=== PATIENT | female | born 1985 | race Caucasian/White ===

== ENCOUNTER 2017-01-16 15:19 | Emergency (ER) | payer OTHER ==
[~2017-01-16] VITALS: Ht 162.6 cm; Wt 109.8 kg
[~2017-01-16 15:19] MED LIST: ALDACTONE25 MG PO; AMBIEN10 MG PO; APAP/HYDROCODON1 T13 PO; CARVEDILOL3.125 M1 PO; CIPRO500 MG PO; FERROUS SULFAT325 M2 PO; FLO4 PO; GABAPENTIN300 M2 PO; KEFLEX500 MG PO; LAC PO; LASIX20 MG PO; LISINOPRIL5 MG PO; NOR10T PO; OMEPRAZOLE20 M2 PO; PRO10 PO; STELARA; SYN75 PO; TRAMADOL HCL50 MG PO; TYLENOL EXTRA500 M2 PO; VITC PO; ZOCOR40 MG PO
[2017-01-16 16:15] LABS: BASOPHIL % 0.4 % (0-2); PLATELET COUNT 226 x10^3mcL (130-400)
[2017-01-16 16:16] LABS: RED CELL DISTRIBUTION WIDTH 18.9 % (11.5-14.5)
[2017-01-16 16:22] LABS: UA SPECIFIC GRAVITY 1.025 (1.005-1.035); microscopic required? YES; urine erythrocyte 1+ (NEGATIVE)
[2017-01-16 18:06] VITALS: BP 169/99
== END 2017-01-16 18:06 | disposition home or self-care (01) ==
LOC: ED 15:19
PROVIDERS: Emergency Medicine
DX: O26.892 Other specified pregnancy related conditions, second trimester (principal); I10 Essential (primary) hypertension; E78.00 Pure hypercholesterolemia, unspecified; E03.9 Hypothyroidism, unspecified; L40.50 Arthropathic psoriasis, unspecified; M79.7 Fibromyalgia; E66.01 Morbid (severe) obesity due to excess calories; Z85.71 Personal history of Hodgkin lymphoma; Z3A.16 16 weeks gestation of pregnancy

== ENCOUNTER 2019-03-08 14:18 | Emergency (ER) | payer OTHER ==
[~2019-03-08] VITALS: Ht 162.6 cm; Wt 112.0 kg
[2019-03-08 14:27] VITALS: Ht 162.6 cm; Wt 112.0 kg
[2019-03-08 15:02] VITALS: BP 177/77
== END 2019-03-08 15:02 | disposition home or self-care (01) ==
LOC: ED 14:18
DX: K04.7 Periapical abscess without sinus (principal); L40.50 Arthropathic psoriasis, unspecified; G62.9 Polyneuropathy, unspecified; F17.210 Nicotine dependence, cigarettes, uncomplicated; I10 Essential (primary) hypertension; Z71.6 Tobacco abuse counseling; Z85.72 Personal history of non-Hodgkin lymphomas
CPT/HCPCS: 99406

== ENCOUNTER 2019-10-01 13:03 | Inpatient (IN) | payer OTHER ==
[~2019-10-01] VITALS: Ht 162.6 cm; Wt 118.8 kg
[2019-10-01 13:27] VITALS: Ht 162.6 cm; Wt 118.8 kg
--- NOTE | 2019-10-01 13:50 | NUR ---
PT C/O SOB SINCE JULY, PT REPORTS EMOTIONALLY UPSET "AFTER MY MOM AND I AM FEELING EXTRA ANXIOUS AND MY BLOOD PRESSURE HAS BEEN WAY MORE HIGH THAN NORMAL PT DENIES ANY HX ASTHMA, PT DENIES ANY CHEST PAIN, PT AAOX4, RESPIRATIONS EVEN AND UNLAORED, LUNGS CTA, PT NOTED TO BE CRYING, SKIN PINK DRY WARM, SPO2 97% VIA RM, NO S/S RESPIRATORY DISTRESS NOTED AT THIS TIME, PT IN NAD ON FULL CM, NSR, SPOUSE AT BEDSIDE, WILL CONTINUE TO MONITOR
--- NOTE | 2019-10-01 13:52 | NUR ---
PORTABLE CXR AT BEDSIDE
--- NOTE | 2019-10-01 14:01 | NUR ---
EKG IN PROGRESS
[2019-10-01 14:21] LABS: BASOPHIL % 0.3 % (0-2); PLATELET COUNT 310 x10^3mcL (130-400)
[2019-10-01 14:23] LABS: RED CELL DISTRIBUTION WIDTH 19.4 % (11.5-14.5)
[2019-10-01 14:37] LABS: CALCIUM 8.7 mg/dL (8.5-10.1); CARBON DIOXIDE 28.4 mmol/L (21-32); CHLORIDE SERUM 105 mmol/L (98-107); CREATININE SERUM 1.1 mg/dL (0.6-1.0); GFR1 > 60 mL/min; GLUCOSE SERUM 102 mg/dL (74-106); POTASSIUM SERUM 5.2 mmol/L (3.5-5.1); SODIUM SERUM 138 mmol/L (136-145)
[2019-10-01 14:42] LABS: ALKALINE PHOSPHATASE 103 U/L (46-116); ALT/SGPT 43 U/L (14-59); AST/SGOT 54 U/L (15-37); BILIRUBIN TOTAL 0.31 mg/dL (0.20-1.00); TOTAL PROTEIN, SERUM 7.4 g/dL (6.4-8.2)
--- NOTE | 2019-10-01 15:39 | NUR ---
MD TORRES MADE AWARE OF PT BP CATAPRES HELD, PER MD TORRES HOLD MED D/T PT BP 153/92 (111)
--- NOTE | 2019-10-01 16:08 | NUR ---
PT CURRENTLY IN CT
--- NOTE | 2019-10-01 17:19 | NUR ---
PT MEDICATED PER MD ORDER, SEE EMAR, NSR ON CM, VSS, CALL LIGHT WITHIN REACH
--- NOTE | 2019-10-01 17:20 | NUR ---
NITRO PATCH REMOVED D/T PT C/O HEADACHE, MADE AWARE
[2019-10-01] MEDS ORDERED: PRO30 PO (17:21)
--- NOTE | 2019-10-01 17:31 | NUR ---
MD TOURE AT BEDSIDE DISCUSSING PLAN OF CARE
--- NOTE | 2019-10-01 18:38 | NUR ---
PT SPEAKING WITH ADMITTING RESIDENTS, IN NAD, SPEAKING FULL CLEAR SENTENCES, NSR ON CM, SKIN PINK DRY WARM
--- NOTE | 2019-10-01 19:15 | NUR ---
REPORT GIVEN TO SONIA MOREIRA, TELE TO RESUME CARE OF PT UPON ADMISSION
--- NOTE | 2019-10-01 19:23 | NUR ---
RECEIVED PT VIA [employer] FROM E/D, ACCOMPANIED BY RN AND TRANSPORTER. PT A/A/O X 4, ANXIOUS (VERBALIZES ANXIOUSNESS, INEFFECTIVE COPING, AND FEARS R/T HOSPITAL STAY (MOTHER 07/2019)) BUT COOPERATIVE TO CARE; C/O CONSTANT THROBBING MIGRAINE H/A "08/16", NOT EXACERBATED BY ANYTHING BUT MILDLY RELIEVED BY PAIN MEDICATIONS; NOTED THAT PT JUST HAD NITROPASTE PATCH REMOVED CLEANING SUPERVISOR TO MST; ALSO, PT'S BP 184/115 (130); STATED THAT SHE BARELY GOT HER INSURANCE BACK. AMBULATORY, NO GAIT OR BALANCE IMPAIRMENT NOTED WHEN WALKING FROM GURNEY TO BED. ON TELE # 21, NSR, HR 96.7, +DIZZINESS ON AMBULATION, DENIES CHEST PAIN OR DISCOMFORT AT THIS TIME. VIKASH RADIAL AND PEDAL PULSES PRESENT, BLE +2 PITTING EDEMA, CAP REFILL < 3 SECS, SCD BY BEDSIDE. LUNGS CTAB, CHEST RISING EVENLY, 2LNC, 100%, C/O PRODUCTIVE COUGH W/ MODERATE AMOUNT OF YELLOW/GREEN SPUTUM. NOTED GENERALIZED BODY PSORIATIC LESIONS. IV SITE LAC 20G, CDI. ORIENTED PT TO ROOM, BED CONTROLS, CALL LIGHT SYSTEM. SIDE RAILS UP X 2, BED IN LOW POSITION. WILL ENDORSE TO SONIA MOREIRA.
[2019-10-01 19:32] LABS: CHOLESTEROL/HDL RATIO 3.1
[2019-10-01 20:13] VITALS: BP 184/115
[2019-10-01 21:00] VITALS: BP 184/115
[2019-10-01 21:39] LABS: TOTAL IRON BINDING CAPACITY 406 ug/dL (250-450)
[2019-10-01 21:42] LABS: IRON 21 ug/dL (50-170)
--- NOTE | 2019-10-01 21:42 | NUR ---
ATIVAN GIVEN FOR ANXIETY.
[2019-10-01 22:29] LABS: RED BLOOD CELLS 4.48 M/mm3 (4.10-5.10)
[2019-10-02 05:06] VITALS: BP 151/90
--- NOTE | 2019-10-02 05:10 | NUR ---
REPORT RECEIVED FROM SONIA MOREIRA. PATIENT WAS SEEN RESTING IN BED. AT BEDSIDE. BREATHING EVEN AND UNLABORED ON ROOM AIR. NO SOB OR RESP DISTRESS NOTED. DENIES CHEST PAIN. C/O 9/10 BACK PAIN WHEN INHALATION OCCURS. WILL ADMINSITER PRN PAIN MEDS. IV TO THE LAC, SALINE LOCK. PATENT AND INTACT. NO REDNESS OR SWELLING NOTED. COMFORT AND SAFETY MEASURES IN PLACE. CALL LIGHT IS WITHIN REACH. WILL CONTINUE TO MONITOR
--- NOTE | 2019-10-02 05:25 | NUR ---
PRN NORCO WAS ADMINISTERED PER ORDER FOR 910 BACK PAIN. MED EDUCATION GIVEN. 2L NC ON. NO DISTRESS NOTED. WILL CONTINUE TO MONITOR
[2019-10-02 06:22] LABS: BASOPHIL % 0.8 % (0-2); PLATELET COUNT 285 x10^3mcL (130-400)
[2019-10-02 06:42] LABS: CALCIUM 8.6 mg/dL (8.5-10.1); CARBON DIOXIDE 26.4 mmol/L (21-32); CHLORIDE SERUM 103 mmol/L (98-107); CREATININE SERUM 1.1 mg/dL (0.6-1.0); GFR1 > 60 mL/min; GLUCOSE SERUM 113 mg/dL (74-106); POTASSIUM SERUM 3.6 mmol/L (3.5-5.1); SODIUM SERUM 138 mmol/L (136-145)
--- NOTE | 2019-10-02 07:25 | NUR ---
RECEIVED PATIENT AOX4, NOT IN DISTRESS, CALM , TELE 21, NSR, REGULAR RATE AND RHYTHM, S1 AND S2 HEARD, PALPABLE PULSES, NO EDEMA, RHONCHI AND CRACKLES ON BLF, PRODUCTIVE COUGH WITH YELLOWISH SPUTUM , O2 AT 2LPM VIA NC, 100% O2 SAT, + BS, 10/01/19, VOID WITH NO DYSURIA, GENERALIZED WEAKNESS, FULL ROM, SILVERY PLAQUE THICKENING GENERALIZED, NO PAIN AT THIS TIME, IV INTACT AND PATENT, SL, NO REDNESS OR INFILTRATION AT LAC. CALL LIGHT WITHIN REACH.B ED AT LOWEST POSITION.
[2019-10-02 08:24] VITALS: BP 174/87
--- NOTE | 2019-10-02 09:00 | NUR ---
SEEN AOX4, NOT IN DISTRESS, COMPLAINTS OF MIGRAINE HEADACHE PS OF 8/10, IV INTACT AND PATENT, NO REDNESS OR INFILTRATION, SL. PO MEDICATIONS GIVEN. SPECIMEN FOR INFLUENZA COLLECTED. CALL LIGHT WITHIN REACH. BED AT LOWEST POSITION.
[2019-10-02 10:44] LABS: microscopic required? YES; urine erythrocyte NEGATIVE (NEGATIVE)
[2019-10-02 11:03] LABS: AMPHETAMINE QUAL UR POSITIVE (See below)
[2019-10-02 12:11] VITALS: BP 107/59
--- NOTE | 2019-10-02 12:38 | NUR ---
PAGED DR MERRILL FOR UA YEAST RESULT. WILL WAIT FOR CALL BACK.
--- NOTE | 2019-10-02 12:43 | NUR ---
DR MERRILL MADE AWARE OF YEAST RESULT
--- NOTE | 2019-10-02 15:10 | NUR ---
DR MERRILL MADE AWARE OF + AMPHETAMINE , + CANNABINOID RESULTS. FOLLOWED UP WITH [facility] FEW YEAST. PER DR MERRILL, SHE WILL ORDER DIFLUCAN .
--- NOTE | 2019-10-02 15:32 | NUR ---
PATIENT UA YEAST RESULT. DIFLUCAN PO GIVEN .
--- NOTE | 2019-10-02 16:49 | NUR ---
PATIENT COMPLAINT OF L LATERAL ARM PAIN FROM FLU VACCINE. PO MEDICATION FOR PAIN GIVEN. LASIX GIVEN PRESCRIBED.
[2019-10-02 16:50] VITALS: BP 131/68
--- NOTE | 2019-10-02 18:31 | NUR ---
SEEN PATIENT ASLEEP AND COMFORTABLE.
--- NOTE | 2019-10-02 19:15 | NUR ---
PAGED DR MERRILL FOR PATIENT'S HYPERSENSITIVITY REACTION AT [facility]. SWELLING AND REDNESS NOTED. ENDORSED TO CHILD LIFE SPECIALIST NURSE JHON.
--- NOTE | 2019-10-02 19:30 | NUR ---
PT RECIEVED FROM DAY NURSE. PT RESTING AT SIDE OF BED AT THIS TIME. PT STATING PAIN TO LUE. EDEMA AND ERYTHEMA NOTED. MD ALMEIDA MADE AWARE. PT A/O X4, CALM AND COOPERATIVE AT THIS TIME. TELE 21, NSR. DENIES CP, NV, DIZZINESS OR PALPATATIONS AT THIS TIME. PALPABLE PULSES, EDEMA NOTED TO LUE AND BLE. ELEVATED WITH PILLOWS. BREATHING E/U ON RA. PT DENIES SOB AT THIS TIME. DRY COUGH NOTED. ABD SOFT AND ROUND, DENIES PAIN TO PALPATION. GENERALZIED WEAKENSS, AMBULATORY AT BASELINE. PSORIATIC LESIONS NOTED ALL OVER BODY. IV TO LAC, CDI. BED AT LOWEST POSITION. CALL LIGHT WITHIN REACH. WILL CONTINUE TO MONITOR.
[2019-10-02 20:27] VITALS: BP 159/74
--- NOTE | 2019-10-02 22:45 | NUR ---
PT COMPLAINING OF ANXIETY, MEDICATED WTIH PRN ATIVAN. WILL CONTINUE TO MONITOR.
--- NOTE | 2019-10-03 | NUR ---
PT RESTING IN BED AT THIS TIME. NO SIGNS OF ACUTE DISTRESS NOTED. BREATHING E/U. WILL CONTINUE TO MONITOR.
[2019-10-03 06:19] VITALS: BP 134/67
[2019-10-03 06:29] LABS: BASOPHIL % 0.3 % (0-2)
[2019-10-03 06:42] LABS: CALCIUM 8.9 mg/dL (8.5-10.1); CARBON DIOXIDE 32.1 mmol/L (21-32); CHLORIDE SERUM 102 mmol/L (98-107); GFR1 > 60 mL/min; GLUCOSE SERUM 101 mg/dL (74-106); POTASSIUM SERUM 3.5 mmol/L (3.5-5.1); SODIUM SERUM 141 mmol/L (136-145)
--- NOTE | 2019-10-03 06:43 | NUR ---
PT COMPLAINING OF ANXIETY. MEDICATED WITH PRN ATIVAN. PT RESTING IN BED. DENIES PAIN OR DISCOMFORT. BREATHING E/U. NO SIGNS OF ACUTE DISTRESS AT THIS TIME. ALL NEEDS AND CONCERNS ADDRESSED. WILL ENDORSE TO DAY NURSE.
[2019-10-03 06:44] LABS: PLATELET COUNT 314 x10^3mcL (130-400)
[2019-10-03 07:06] LABS: RED CELL DISTRIBUTION WIDTH 19.2 % (11.5-14.5)
[2019-10-03 08:18] VITALS: BP 150/90
--- NOTE | 2019-10-03 09:20 | NUR ---
SEEN AOX4, NOT IN DISTRESS, COHERENT , RESPONSIVE, TELE 21 NSR WITH DEPRESSED T WAVE, REGULAR RATE AND RHYTHM, S1 AND S2 HEARD, + MURMUR AT 5TH RICS, MCL, CTA ON BLF, +BS, VOID WITH NO DYSURIA, GENERALIZED WEAKNESS, PAIN AT ROMERO PS 4/10, IV INTACT AND PATENT, NO REDNESS OR INFILTRATION. PHILIP REDNESS, ROMERO REDNESS AND SWELLING. PSORIATIC LESIONS ALL OVER BODY. CALL LIGHT WITHIN REACH. BED AT LOWEST POSITION.
--- NOTE | 2019-10-03 09:31 | NUR ---
SEEN AOX4, NOT IN DISTRESS, PO MEDICATIONS TAKEN, LASIX IVP GIVEN, IV INTACT WITH NO REDNESS OR INFILTRATION. IV FLUSHED.
--- NOTE | 2019-10-03 09:34 | NUR ---
SEEN AOX4, NOT IN DISTRESS, FLONASE SPRAYED TO EACH NOSTRIL.
--- NOTE | 2019-10-03 11:24 | NUR ---
SEEN AOX4, RESPONSIVE, VENLAFAXINE PO GIVEN.
[2019-10-03 11:35] VITALS: BP 157/73
[2019-10-03 17:00] VITALS: BP 125/63
--- NOTE | 2019-10-03 18:01 | NUR ---
PATIENT WAS LYING ON LEFT ARM, IV SITE LEAKING, ASSESSED IV . IV REINFORCED WITH DRESSING, FLUSHED TO ENSURE PATENCY. PATIENT ANXIOUS. GIVEN XANAX PO. CALL LIGHT WITHIN REACH. BED AT LOWEST POSITION.
--- NOTE | 2019-10-03 18:17 | NUR ---
LASIX IVP GIVEN
[2019-10-03 19:15] VITALS: BP 131/66
--- NOTE | 2019-10-03 19:15 | NUR ---
RECEIVED PT AWAKE ALERT AND VERBALLY RESPONSIVE.BREATHING EASY AND NON-LABORED.O2 SAT @ 97% RA.OCCASSIONAL COUGHING REPORTED BY PT TO WHITISH COLORED PHLEGM,SUCTIONED AT BEDSIDE PREFFERED BY PT.DIMINISHED BREATHSOUNDS.DENIES CHESTPAIN.BP 131/66 MMHG,HR 100.WILL CONTINUE TO MONITOR.
--- NOTE | 2019-10-04 04:48 | NUR ---
PT SLEPT WELL ALL NIGHT.BREATHING EASY AND NON-LABORED.ON RT PROTOCOL.BREATHING TX GIVEN ORDERED.DENIES ANY PAIN AT THIS TIME.ALL NEEDS MET.WILL CONTINUE TO MONITOR.
[2019-10-04 05:44] VITALS: BP 148/79
[2019-10-04 06:36] LABS: CALCIUM 8.6 mg/dL (8.5-10.1); CARBON DIOXIDE 29.8 mmol/L (21-32); CHLORIDE SERUM 103 mmol/L (98-107); CREATININE SERUM 0.9 mg/dL (0.6-1.0); GFR1 > 60 mL/min; GLUCOSE SERUM 106 mg/dL (74-106); POTASSIUM SERUM 3.6 mmol/L (3.5-5.1); SODIUM SERUM 140 mmol/L (136-145)
[2019-10-04 06:44] LABS: BASOPHIL % 0.3 % (0-2); PLATELET COUNT 336 x10^3mcL (130-400)
[2019-10-04 07:21] LABS: RED CELL DISTRIBUTION WIDTH 19.3 % (11.5-14.5)
--- NOTE | 2019-10-04 07:30 | NUR ---
PT SLEEPING. NO RESP DISTRESS NOTED. CALL LIGHT WITHIN REACH. FAMILY MEMBER IN ROOM ALSEEP IN CHAIR.
[2019-10-04 07:50] VITALS: BP 144/73
--- NOTE | 2019-10-04 09:30 | NUR ---
SLEEPING AWAKENS TO VERBAL. STARTED NEW IV TO RT FA. NO C/O PAIN . LUNG SOUNDS CLEAR ON RA. GOOD APPETITE WITH BREAKFAST. VSS. BRP. CALL LIGHT WITHIN REACH. FAMILY MEMBER ASLEEP IN CHAIR.
--- NOTE | 2019-10-04 10:14 | NUR ---
PRECIOUS COMMUNITY PHARMACIST IN TO SEE PT. IV WAS FOUND TO BE NONPATENT AND DC'D FROM LEFT FA. PT CONTINUES TO SLEEP.
[2019-10-04 12:23] VITALS: BP 111/57
[2019-10-04 16:12] VITALS: BP 96/52
[2019-10-04 16:14] VITALS: BP 119/46
[2019-10-04 19:10] VITALS: BP 131/62
--- NOTE | 2019-10-04 19:10 | NUR ---
RECEIVED PT ASLEEP BUT EASILY AROUSABLE.BREATHING EASY AND NON-LABORED.DIMINISHED BREATHSOUNDS,SUCTION ON STANDBY TO SUCTION SECRETIONS.SECRETIONS TO THICK WHITISH PHLEGM.DENIES CHESTPAIN.BP 131/62 MMHG,HR 106.DINNER TRAY SET-UP AND EATING AT THIS TIME.WILL CONTINUE TO MONITOR.
--- NOTE | 2019-10-04 19:43 | NUR ---
PT HAS BEEN QUIET ENTIRE SHIFT. SLEPT MOST OF THE DAY. INDEPENDENT W ADLS'.XANAX ADMIN X 1. VSS. NO C/O PAIN. SL TO RT FA. BREATHING FREELY ON RA.
--- NOTE | 2019-10-05 04:49 | NUR ---
PT SLEPT WELL ALL NIGHT.BREATHING EASY AND NON-LABORED.ON RT PROTOCOL.ENCOURAGED USE OF INCENTIVE SPIROMETER.ALL NEEDS MET.WILL CONTINUE TO MONITOR.
[2019-10-05 05:16] VITALS: BP 109/57
[2019-10-05 07:09] LABS: BASOPHIL % 0.4 % (0-2); PLATELET COUNT 366 x10^3mcL (130-400)
[2019-10-05 07:22] LABS: RED CELL DISTRIBUTION WIDTH 19.7 % (11.5-14.5)
[2019-10-05 07:36] LABS: CALCIUM 9.1 mg/dL (8.5-10.1); CARBON DIOXIDE 29.4 mmol/L (21-32); CHLORIDE SERUM 101 mmol/L (98-107); GFR1 > 60 mL/min; GLUCOSE SERUM 89 mg/dL (74-106); POTASSIUM SERUM 4.3 mmol/L (3.5-5.1); SODIUM SERUM 138 mmol/L (136-145)
--- NOTE | 2019-10-05 08:00 | NUR ---
RECIEVED PATIENT ASLEEP BUT ARROUSABLE. IV INTACT AND PATIENT HAS NOTED AN ODOR TO HERSELF AND WAS OFFERED SEVERAL TIMES FOR A SHOWER BUT HAS YET TAKEN. SHE HERNANDEZ SOME CONGESTION TO THE LUNGS AND A MINIMAL PRODUCTION OF SPUTUM NOTED. PATIENT HAS SOME EDMEA TO THE LOWER EXTREMITIES BUT TRACE AT THIS TIME. SHE IS GROSSLY OBESE AND HAS NOT COMPLIED WITH HOSPITAL GOWN AND NOTED PSORIASIS PATCHY LESIONS ON WHAT STAFF CAN SEE ON HER ARMS AND TO HER ABDOMEN. SHE HAS TAKEN HER MEDICATIONS ORDERED AND IS NOW REQUESTING ANXIETY MEDICATION AND GAVE XANAX ORDERED. SHE HAS BEEN AMBULATORY AND WITH HX OF FIBROMAYLAGIA AND [id number]. SHE HAS NOTED LASB OF WBC AT 11.9, AND THE H AND H OF 10.3/33, AND THE BUN AT 21.0. PATIENT AHS VITALS AT THIS TIME AT 98.1, 91, 18, 109/57, 97%. PATIENT WAS POSTIVE FOR THC AND AMPHETAMINE IN HER URINE ON ARRIAVL SHE HAS BEEN SEEN BY DR CHURCH, LUIS E AND DR SEAMAN. PATIENT SEEN BY THE TRANSIT VEHICLE INSPECTOR AND PLAN IS FOR DISCHARGE HOME TODAY PER REPORT FROM TRUMPET TEACHER.
[2019-10-05 08:45] VITALS: BP 116/63
--- NOTE | 2019-10-05 09:23 | NUR ---
SEEN TODAY BY MORTGAGE FUNDER AND PLAN IS FOR DISCHARGE HOME TODAY. AWAITING ORDERS AT THIS TIME.
[2019-10-05] MEDS ORDERED: ZESTRIL5 MG PO (11:10)
[2019-10-05] MEDS ORDERED: PROCARDIA XL90 MG PO (11:10)
[2019-10-05] MEDS ORDERED: LASIX40 MG PO (11:10)
--- NOTE | 2019-10-05 11:31 | NUR ---
ORDER FOR DISCHARGE RECIEVED. WILL ADVISE THE PATIENT INDICATED.
[2019-10-05 11:36] VITALS: BP 116/63
[2019-10-05 12:11] VITALS: BP 130/70
--- NOTE | 2019-10-05 12:46 | NUR ---
REMOVED THE IV AND AND PATIEN TFOR DISCHARGE HOME TODAY. PATIENT IS ANXIOUS TO GO HOME. AWAITING HER FAMILY TO DIRECT SERVICE PROFESSIONAL.
== END 2019-10-05 13:50 | disposition home or self-care (01) | DRG 199 ==
LOC: ED 13:03 → DU 18:21 → MU 10-05 04:28
PROVIDERS: Emergency Medicine; ADMIT General Practice
DX: I16.0 Hypertensive urgency (principal); N17.0 Acute kidney failure with tubular necrosis; I11.0 Hypertensive heart disease with heart failure; I50.33 Acute on chronic diastolic (congestive) heart failure; E44.0 Moderate protein-calorie malnutrition; E87.5 Hyperkalemia; L40.50 Arthropathic psoriasis, unspecified; Z68.41 Body mass index [BMI] 40.0-44.9, adult; M94.0 Chondrocostal junction syndrome [Tietze]; J20.8 Acute bronchitis due to other specified organisms; M79.7 Fibromyalgia; F15.10 Other stimulant abuse, uncomplicated; F12.10 Cannabis abuse, uncomplicated; F17.210 Nicotine dependence, cigarettes, uncomplicated; F32.9 Major depressive disorder, single episode, unspecified; F41.9 Anxiety disorder, unspecified; Z85.71 Personal history of Hodgkin lymphoma; Z92.21 Personal history of antineoplastic chemotherapy; Z92.3 Personal history of irradiation
CPT/HCPCS: 83880; 87804; 90658; 90732; 97116-GP; G0378; J1885; J1940; J2060; J7512; Q0092; Q9967

== ENCOUNTER 2019-11-29 17:47 | Emergency (ER) | payer OTHER ==
[~2019-11-29] VITALS: Ht 162.6 cm; Wt 112.5 kg
[~2019-11-29 17:47] MED LIST changes: +LASIX40 MG PO; +PRO30 PO; +PROCARDIA XL90 MG PO; +ZESTRIL5 MG PO
[2019-11-29 19:03] VITALS: BP 150/82; Ht 162.6 cm; Wt 112.5 kg
== END 2019-11-29 19:42 | disposition home or self-care (01) ==
LOC: ED 17:47
DX: J03.90 Acute tonsillitis, unspecified (principal); J06.9 Acute upper respiratory infection, unspecified; I10 Essential (primary) hypertension; M79.7 Fibromyalgia; L40.9 Psoriasis, unspecified; Z85.71 Personal history of Hodgkin lymphoma

== ENCOUNTER 2020-12-22 17:31 | Emergency (ER) | payer OTHER ==
[~2020-12-22] VITALS: Ht 162.6 cm; Wt 113.4 kg
[2020-12-22 17:38] VITALS: Ht 162.6 cm; Wt 113.4 kg
[2020-12-22 18:44] LABS: BASOPHIL % 0.8 % (0.2-1.3); PLATELET COUNT 299 x10^3mcL (179-408)
[2020-12-22 18:45] LABS: RED CELL DISTRIBUTION WIDTH 18.6 % (12.3-17.7)
[2020-12-22 19:10] LABS: CALCIUM 8.9 mg/dL (8.5-10.1); CARBON DIOXIDE 27.6 mmol/L (21-32); CREATININE SERUM 1.1 mg/dL (0.6-1.0); POTASSIUM SERUM 3.7 mmol/L (3.5-5.1)
[2020-12-22 19:14] LABS: BILIRUBIN TOTAL 0.3 mg/dL (0.20-1.00); TOTAL PROTEIN, SERUM 7.4 g/dL (6.4-8.2)
[2020-12-22 19:19] LABS: ALBUMIN 3.3 g/dL (3.4-5.0)
[2020-12-22 19:34] LABS: rbc morphology (normal/abnorm) ABNORMAL (NORMAL)
[2020-12-22] MEDS ORDERED: PROCARDIA XL60 MG PO (21:32)
[2020-12-22] MEDS ORDERED: PROAIR HFA8.5 GM INH (21:32)
[2020-12-22] MEDS ORDERED: PRE20 PO (21:32)
[2020-12-22] MEDS ORDERED: LASIX40 MG PO (21:32)
[2020-12-22 21:51] VITALS: BP 164/95
== END 2020-12-22 21:51 | disposition home or self-care (01) ==
LOC: ED 17:31
PROVIDERS: Emergency Medicine
DX: I16.0 Hypertensive urgency (principal); I11.0 Hypertensive heart disease with heart failure; I50.9 Heart failure, unspecified; L40.50 Arthropathic psoriasis, unspecified; Z90.49 Acquired absence of other specified parts of digestive tract
CPT/HCPCS: 83880; J1940; J3490; J7512; J7613; J7644